=== PATIENT | female | born 1975 | race African-American/Black ===

== ENCOUNTER → 2021-11-10 | Outpatient (CLI) | payer BC | LOC: MC.RAD 07:30 | DX: Z12.31 Encounter for screening mammogram for malignant neoplasm of breast (principal) ==

== ENCOUNTER 2022-02-15 06:40 | Day surgery (SDC) | payer BC ==
[~2022-02-15] VITALS: Ht 170.2 cm; Wt 97.4 kg
[2022-02-15 07:00] VITALS: BP 132/81; PULSE 61; TEMP 97.3
[2022-02-15] MEDS ORDERED: ALLEGRA ALLERG180 MG PO (07:05)
[2022-02-15 08:15] VITALS: BP 118/71; PULSE 70; TEMP 97.7
--- NOTE | 2022-02-15 08:15 | NUR ---
pt to [facility] via cart from endo lab, walked to chair, awake and alert. no c/o, has call light and takes drink and snack
[2022-02-15 08:30] VITALS: BP 116/71; PULSE 77
[2022-02-15 08:45] VITALS: BP 117/78; PULSE 78
--- NOTE | 2022-02-15 08:45 | NUR ---
Dr samayoa see pt, reviewed discharge inst. with pt on precautions today, followup and activity with verbal understanding. iv d'cd intact. pt up and dressed, up to b/r and discharged via w/c to car at 0910
== END 2022-02-15 09:10 | disposition home or self-care (01) ==
LOC: SDCO 06:40
DX: Z12.11 Encounter for screening for malignant neoplasm of colon (principal); E66.9 Obesity, unspecified
CPT/HCPCS: J2704; J7030